=== PATIENT | female | born 1995 | race Caucasian/White ===

== ENCOUNTER 2018-09-24 08:37 | Emergency (ER) | payer MEDICAID, SELFPAY ==
[2018-09-24 08:47] VITALS: BP 123/78; PULSE 98; RESP 16; TEMP 37; O2SAT 98
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
[2018-09-24] MEDS: Dexamethasone 10 MG/ML VIAL PO (09:00)
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
== END 2018-09-24 09:17 | disposition home or self-care (01) ==
LOC: ER 09:07
PROVIDERS: Emergency Provider Emergency Medicine; PCP Family Medicine
DX: J02.0 Streptococcal pharyngitis (principal)
CPT/HCPCS: 87880; 99283; J1100

== ENCOUNTER 2018-12-02 09:40 | Outpatient (CLI) | payer MEDICAID, SELFPAY ==
[2018-12-02 10:34] LABS: Absolute Basophil Count 0.01 k/cumm (0.0-0.2); Absolute Eosinophil Count 0.03 k/cumm (0.0-0.7); Absolute Lymphocyte Count 1.54 k/cumm (1.2-3.4); Absolute Monocyte Count 0.48 k/cumm (0.11-0.7); Absolute Neutrophil Count 3.92 k/cumm (1.2-6.7); Basophils % 0.2; Eosinophils % 0.5; HCT 35.9 % (36.0-46.0); Lymphocytes % 25.8; Mean Corp. HGB Concentration 33.4 g/dL (32.0-36.0); Mean Corpuscular Hemoglobin 28.8 pg (27.0-33.0); Mean Corpuscular Volume 86.1 fL (80-95); Mean Platelet Volume 11.1 fL (8.0-11.0); Neutrophils % 65.5; Platelet Count 300 x1000/uL (130-400); RBC 4.17 m/cumm (4.00-5.20); RBC Distribution Width 14.6 % (11.7-14.6); White Blood Cell Count 5.98 k/cumm (4.4-10.8)
[2018-12-02 11:14] LABS: TSH (W/Ref FT4) 1.22 uIU/mL (0.358-3.74)
[2018-12-03 11:13] LABS: Syphilis Serology (RPR) Negative (Negative); Varicella IgG Antibody Positive
[2018-12-03 11:19] LABS: Hepatitis B Surface Ag Negative (NEGAT); Hepatitis C Ab w Rflx HCV PCR Negative (NEGAT)
[2018-12-03 11:20] LABS: HIV-1/2 Ag & Ab Screen Negative (NEGAT)
[2018-12-03 12:41] LABS: Rubella IgG Ab (UVM) Positive
== END 2018-12-02 10:00 ==
PROVIDERS: PCP Family Medicine; Visit Provider Advanced Practice Midwife
DX: Z34.91 Encounter for supervision of normal pregnancy, unspecified, first trimester (principal); Z11.59 Encounter for screening for other viral diseases; Z01.84 Encounter for antibody response examination; Z11.4 Encounter for screening for human immunodeficiency virus [HIV]
CPT/HCPCS: 36415; 80055; 86787; 86803; 86850; 86900; 86901; 87340; 87389; 84443; 86592; 86762

== ENCOUNTER 2018-12-30 11:03 | Outpatient (REF) | payer MEDICAID, SELFPAY ==
[2018-12-30 11:38] LABS: *AMPHETAMINES SCREEN URINE Negative (Negative); *BARBITURATES SCREEN URINE Negative (Negative); *BENZODIAZEPINES SCREEN URINE Negative (Negative); Cannabinoids THC Negative (Negative); Cocaine Screen,Urine Negative (Negative); METHADONE URINE SCREEN Negative (Negative); OPIATES URINE SCREEN Negative (Negative)
[2018-12-30 11:50] LABS: Tricyclic Antidepressants Negative (Negative)
[2018-12-31 14:03] LABS: Chlamydia Result Negative; GC Result Negative; Specimen Description URINE
[2019-01-03 06:40] LABS: Buprenorphine Negative; Norbuprenorphine Negative
== END 2018-12-30 11:23 ==
LOC: LBN 11:03
PROVIDERS: PCP Family Medicine; Visit Provider Advanced Practice Midwife
DX: Z34.91 Encounter for supervision of normal pregnancy, unspecified, first trimester (principal); Z11.3 Encounter for screening for infections with a predominantly sexual mode of transmission
CPT/HCPCS: 80307; 87491; 87591